=== PATIENT | male | born 1985 | race Native Hawaiian/Other Pacific Islander ===

== ENCOUNTER 2020-05-02 10:03 | Emergency (ER) | payer BC ==
[~2020-05-02] VITALS: Ht 180.3 cm; Wt 85.3 kg
[2020-05-02 10:55] LABS: PLATELET COUNT 234 K/uL (142-355)
[2020-05-02 11:03] LABS: POTASSIUM 2.9 mmol/L (3.6-5.2)
[2020-05-02 12:10] VITALS: TEMP 97.5
[2020-05-02 13:45] VITALS: BP 128/79
== END 2020-05-02 13:45 | disposition home or self-care (01) ==
LOC: ED 10:03
PROVIDERS: Family Medicine
DX: K52.89 Other specified noninfective gastroenteritis and colitis (principal); E86.0 Dehydration; R11.2 Nausea with vomiting, unspecified; E87.6 Hypokalemia; E87.1 Hypo-osmolality and hyponatremia; Z20.828 Contact with and (suspected) exposure to other viral communicable diseases
CPT/HCPCS: 36415; 80053; 81000; 82150; 82728; 83690; 85027; 85379; 87015; 87045; 87635; 87899; 96360; 96375; 99284; J2405; U0003

== ENCOUNTER 2022-08-24 12:16 | Outpatient (CLI) | payer BC | END 2022-08-24 19:12 | disposition home or self-care (01) | LOC: RAD 12:16 | PROVIDERS: ATTEND Orthopaedic Surgery | DX: M25.511 Pain in right shoulder (principal) ==

== ENCOUNTER 2022-09-03 08:38 | Outpatient (CLI) | payer BC | END 2022-09-03 20:11 | disposition home or self-care (01) | LOC: MRI 08:38 | PROVIDERS: ATTEND Orthopaedic Surgery | DX: M25.511 Pain in right shoulder (principal) ==